=== PATIENT | female | born 2000 | race Caucasian/White ===

== ENCOUNTER 2021-04-01 21:23 | Inpatient (IN) | payer OTHER, SELFPAY ==
[2021-04-01] MEDS ORDERED: Dexamethasone 4 mg/ml Vial ONE (21:39)
[2021-04-01] MEDS ORDERED: Fentanyl 100 MCG/2 ML VIAL ONE ×4 (21:39→23:34)
[2021-04-01] MEDS ORDERED: Ondansetron PF 4 MG/2 ML Vial ONE ×2 (21:39→21:46)
[2021-04-01] MEDS ORDERED: PROPOFOL 20 ML ONE (21:39)
[2021-04-01] MEDS ORDERED: Ketorolac Tromethamine 30 MG/ML VIAL ONE (21:40)
[2021-04-01] MEDS ORDERED: Bupivacaine 0.25% HCL 30 ML VIAL ONE (21:55)
[2021-04-01] MEDS ORDERED: EPINEPHrine 1 MG/ML AMP ONE (21:55)
[2021-04-01] MEDS ORDERED: CEFAZOLIN 1 GM VIAL ONE (21:58)
[2021-04-01] MEDS ORDERED: PHENYLEPHRINE-NS 100 MCG/ML 10 ML SYRINGE ONE (22:08)
[2021-04-01 22:30] LABS: SARS-CoV-2 NAA Rapid Test Not Detected (NotDetected)
[2021-04-01] MEDS ORDERED: Meperidine HCl/PF 25 MG/ML VIAL ONE (23:22)
[2021-04-01] MEDS ORDERED: diphenhydrAMINE 25 MG CAP PO PRN (23:40)
[2021-04-01] MEDS ORDERED: Simethicone Chewable 80 MG TAB PO PRN (23:40)
[2021-04-01] MEDS ORDERED: Ondansetron PF 4 MG/2 ML Vial IVP PRN (23:40)
[2021-04-01] MEDS ORDERED: Morphine 4 MG/ML VIAL SLOW IVP PRN (23:40)
[2021-04-01] MEDS ORDERED: Zolpidem Tartrate 5 MG TAB PO PRN (23:40)
[2021-04-01] MEDS ORDERED: HYDROcodone/Acetaminophen 10/325 mg Tablet PO PRN (23:40)
[2021-04-02] MEDS: HYDROcodone/Acetaminophen 10/325 mg Tablet PO PRN ×3 (00:48→11:16)
[2021-04-02 01:12] VITALS: BMI 25.6
[2021-04-02] MEDS: Lactated Ringer's 1,000 ML IV SCH ×2 (02:08→09:52)
[2021-04-02] MEDS ORDERED: Ibuprofen 800 MG TAB PO SCH (06:00)
[2021-04-02 08:11] VITALS: BP 102/56; TEMP 98.5
[2021-04-03] MEDS ORDERED: FLU VACC QS2021-22(6MOS UP)/PF 60 MCG/0.5 ML SYRINGE IM ONE (09:00)
== END 2021-04-02 11:45 | disposition home or self-care (01) | DRG 817 ==
LOC: CSHERS 21:23 → CSHPP 04-02 00:33
PROVIDERS: ADMIT Obstetrics & Gynecology; ATTEND Obstetrics & Gynecology
PROC: 0UT54ZZ Resection of Right Fallopian Tube, Percutaneous Endoscopic Approach (ICD-10-PCS; principal; 2021-04-01)
DX: O00.101 Right tubal pregnancy without intrauterine pregnancy (principal); K66.1 Hemoperitoneum; Z90.49 Acquired absence of other specified parts of digestive tract; Z20.822 Contact with and (suspected) exposure to COVID-19
CPT/HCPCS: 88305; 96374; 96375; C1713; J0171; J0690; J1100; J1885; J2175; J2270; J2405; J2704; J3010; S0020; U0002

== ENCOUNTER 2023-04-13 03:39 | Emergency (ER) | payer SELFPAY ==
[2023-04-13] MEDS ORDERED: Ketorolac Tromethamine 30 MG (1 mL) VIAL ONE (05:10)
== END 2023-04-13 07:27 | disposition home or self-care (01) ==
LOC: CSHERS 03:39
DX: N83.291 Other ovarian cyst, right side (principal); F17.290 Nicotine dependence, other tobacco product, uncomplicated
CPT/HCPCS: 76856; 96372; J1885

== ENCOUNTER 2024-09-20 07:49 | Inpatient (IN) | payer MEDICAID, OTHER ==
[2024-09-20] MEDS ORDERED: Bupivacaine 0.25% HCL 30 ML VIAL ONE (08:00)
[2024-09-20] MEDS ORDERED: Bupivacaine HCl 0.5%/Epinephrine 1:200,000/PF 30 ml Vial ONE (08:00)
[2024-09-20 21:21] VITALS: BMI 31.9
[2024-09-20] MEDS ORDERED: Ondansetron PF 4 MG/2 ML Vial IVP PRN (23:16)
[2024-09-20] MEDS ORDERED: Carboprost 250 MCG/ML AMP IM PRN (23:16)
[2024-09-20] MEDS ORDERED: Lidocaine 1% (PF) 30 ML VIAL SC PRN (23:16)
[2024-09-20] MEDS ORDERED: hydrALAZINE 20 MG/ML VIAL SLOW IVP PRN (23:16)
[2024-09-20] MEDS ORDERED: Methylergonovine 0.2 MG/ML VIAL IM PRN (23:16)
[2024-09-20] MEDS ORDERED: Diphenoxylate HCl/Atropine Tablet PO PRN ×2 (23:16)
[2024-09-20] MEDS ORDERED: Oxytocin 30 units/NS 500 ML 500 ML IV SCH (23:30)
[2024-09-21 00:35] LABS: Hematocrit 32.0 % (34.9-44.5); Hemoglobin 10.8 g/dL (12.0-15.5); Mean Corpuscular Hemoglobin 30.0 pg (27.0-33.0); Mean Corpuscular Volume 88.9 fL (81.6-98.3); Platelet Count 140 10x3/uL (150-450); Red Blood Cell (RBC) Count 3.60 10x6/uL (3.90-5.03); White Blood Cell (WBC) Count 9.29 10x3/uL (3.5-10.5)
[2024-09-21 00:50] LABS: Syphilis Antibody Index 0.06 S/CO (<1.00 Non-Reactive)
[2024-09-21 00:51] LABS: Hep B Surf Ag - L&D Non-Reactive S/CO (NonReactive)
[2024-09-21] MEDS: Penicillin G Potassium 5 MILL.UNITS in Sodium Chloride 0.9% 100 ML IVPB SCH (01:12)
[2024-09-21] MEDS: Penicillin G 2.5 MILL.units 2.5 MILL.UNITS in Premix 1 BAG IVPB SCH (05:21)
[2024-09-21] MEDS: fentaNYL/Ropivacaine Epidural 100 ML ONE (15:56)
[2024-09-21] MEDS ORDERED: Acetaminophen 325 MG TAB PO PRN (16:10)
[2024-09-21] MEDS ORDERED: diphenhydrAMINE 50 MG/ML VIAL IVP PRN (16:10)
[2024-09-21] MEDS ORDERED: Communication Order-Pharmacy FS SCH (16:15)
[2024-09-21] MEDS: Ondansetron PF 4 MG/2 ML Vial IVP PRN (22:19)
[2024-09-22] MEDS: fentaNYL 2 mcg/Ropivacaine 0.2% Epidural 100 ML CADD EPIDURAL SCH (01:28)
[2024-09-22] MEDS: Oxytocin 30 units/NS 500 ML 500 ML IV SCH (03:03)
[2024-09-22] MEDS: Acetaminophen 500 MG TAB PO PRN (04:25)
[2024-09-22] MEDS: Lidocaine 1% (PF) 30 ML VIAL ONE (11:17)
[2024-09-22] MEDS: Oxytocin 30 units/NS 500 ML 500 ML ONE (11:17)
[2024-09-22] MEDS: Tranexamic Acid 1,000 MG/10 ML VIAL IVP PRN (13:32)
[2024-09-22] MEDS: Tranexamic Acid 1,000 MG/10 ML VIAL ONE (13:51)
[2024-09-22] MEDS: Ibuprofen 800 MG TAB PO PRN (14:09)
[2024-09-22] MEDS: Ibuprofen 800 MG TAB PO SCH ×2 (15:35→22:02)
[2024-09-22] MEDS ORDERED: diphenhydrAMINE 25 MG CAP PO PRN (15:51)
[2024-09-22] MEDS ORDERED: Bisacodyl 10 MG SUPP PR PRN (15:51)
[2024-09-22] MEDS ORDERED: Lanolin Ointment 7 GM TUBE TOP PRN (15:51)
[2024-09-22] MEDS ORDERED: Ondansetron PF 4 MG/2 ML Vial IVP PRN (15:51)
[2024-09-22] MEDS ORDERED: Milk Of Magnesia 30 ML UDCUP PO PRN (15:51)
[2024-09-22] MEDS ORDERED: hydrALAZINE 20 MG/ML VIAL SLOW IVP PRN (15:51)
[2024-09-22] MEDS: Boostrix 0.5 ML (Tdap) VIAL (>/=7 yrs of age) IM ONE (16:23)
[2024-09-22] MEDS: HYDROcodone/Acetaminophen 5/325 mg Tablet PO PRN (16:25)
[2024-09-22] MEDS: Ferrous Sulfate 325 MG TAB PO SCH (17:59)
[2024-09-22] MEDS: Benzocaine-Menthol 82.5 ML CAN TOP PRN (20:15)
[2024-09-22] MEDS ORDERED: Witch Hazel 100 PAD JAR TOP PRN (20:16)
[2024-09-23] MEDS: HYDROcodone/Acetaminophen 5/325 mg Tablet PO PRN (08:17)
[2024-09-24 08:49] VITALS: BP 116/70; TEMP 97.8
== END 2024-09-24 15:40 | disposition home or self-care (01) | DRG 807 ==
LOC: CSHLD 20:59 → CSHPED 09-22 17:00
PROVIDERS: ADMIT Family Medicine; ATTEND Family Medicine
PROC: 10E0XZZ Delivery of Products of Conception, External Approach (ICD-10-PCS; principal; 2024-09-22)
PROC: 10907ZC Drainage of Amniotic Fluid, Therapeutic from Products of Conception, Via Natural or Artificial Opening (ICD-10-PCS; 2024-09-22)
PROC: 3E0DXGC Introduction of Other Therapeutic Substance into Mouth and Pharynx, External Approach (ICD-10-PCS; 2024-09-22)
PROC: 4A1HXCZ Monitoring of Products of Conception, Cardiac Rate, External Approach (ICD-10-PCS; 2024-09-22)
PROC: 10H07YZ Insertion of Other Device into Products of Conception, Via Natural or Artificial Opening (ICD-10-PCS; 2024-09-22)
DX: O48.0 Post-term pregnancy (principal); Z37.0 Single live birth; O99.824 Streptococcus B carrier state complicating childbirth; O76 Abnormality in fetal heart rate and rhythm complicating labor and delivery; Z79.899 Other long term (current) drug therapy; Z3A.40 40 weeks gestation of pregnancy
CPT/HCPCS: 51702; 85027; 86780; 86850; 86900; 86901; 87340; J0595; J0665; J2405; J2540; J2590

== ENCOUNTER 2024-10-09 13:28 | Emergency (ER) | payer OTHER ==
[2024-10-09 14:03] LABS: #Basophils 0.04 10x3/uL (0.0-0.2); #Eosinophils 0.32 10x3/uL (0.0-0.5); #Monocytes 0.44 10x3/uL (0.0-1.1); #Neutrophils 5.09 10x3/uL (1.5-8.4); %Basophils 0.5 % (0.0-2.0); %Eosinophils 4.0 % (0.0-6.0); %Lymphocytes 26.2 % (18.0-47.0); %Monocytes 5.5 % (0.0-10.0); %Neutrophils 63.4 % (40.0-75.0); Hematocrit 41.6 % (34.9-44.5); Hemoglobin 14.0 g/dL (12.0-15.5); Mean Corpuscular Hemoglobin 29.4 pg (27.0-33.0); Mean Corpuscular Volume 87.4 fL (81.6-98.3); Platelet Count 300 10x3/uL (150-450); Red Blood Cell (RBC) Count 4.76 10x6/uL (3.90-5.03); White Blood Cell (WBC) Count 8.02 10x3/uL (3.5-10.5)
[2024-10-09 14:45] LABS: Glucose, Urine (Dipstick) Normal (Negative); Leukocyte 500 (Negative); Protein, Urine (Dipstick) 30 mg/dl (Neg-Trace); Specific Gravity, Urine 1.015 (1.005-1.030)
[2024-10-09 15:13] LABS: RBC/HPF Greater than 50 HPF (0-3)
[2024-10-09 15:14] LABS: CAUTI Indications for Culture Pelvic or flank pain; WBC/HPF 21-50 HPF (0-3)
[2024-10-09 15:15] LABS: Bacteria/HPF 2+ HPF (None Seen); Mucous/LPF 2+ LPF (<2+)
[2024-10-09 15:18] LABS: Urine Culture Reflex Yes Yes
== END 2024-10-09 17:30 | disposition home or self-care (01) ==
LOC: CSHERS 13:28
DX: O72.2 Delayed and secondary postpartum hemorrhage (principal); O86.20 Urinary tract infection following delivery, unspecified; N39.0 Urinary tract infection, site not specified
CPT/HCPCS: 36415; 76856; 81001; 84702; 85025; 86850; 86900; 86901; 87077; 87086; 87186